=== PATIENT | female | born 1995 | race Caucasian/White ===

== ENCOUNTER 2018-09-12 05:41 | Day surgery (SDC) | payer OTHER, BC ==
[2018-09-12] MEDS ORDERED: MIDAZOLAM 1 MG/ML 2 ML INJ ×3 (07:59)
[2018-09-12] MEDS ORDERED: FENTAnyl 50 MCG/ML VIAL (07:59)
== END 2018-09-12 15:51 | disposition home or self-care (01) ==
LOC: GIL 05:41
DX: K21.9 Gastro-esophageal reflux disease without esophagitis (principal); K29.60 Other gastritis without bleeding
CPT/HCPCS: 43239; 84703; 88305